=== PATIENT | female | born 1985 | race African-American/Black ===

== ENCOUNTER 2022-03-27 23:44 | Emergency (ER) | payer SELFPAY ==
[~2022-03-27] VITALS: Ht 162.6 cm; Wt 54.0 kg
[2022-03-28 06:15] VITALS: BP 110/69
== END 2022-03-28 06:15 | disposition home or self-care (01) ==
LOC: ER 23:44
DX: F10.129 Alcohol abuse with intoxication, unspecified (principal); Y90.0 Blood alcohol level of less than 20 mg/100 ml
CPT/HCPCS: 99283